=== PATIENT | male | born 1930 | race Caucasian/White ===

== ENCOUNTER 2017-06-26 07:30 | Day surgery (SDC) | payer MEDICARE, BC ==
[~2017-06-26 07:30] MED LIST: Lactated Ringers 1,000 ML IV SCH; Sodium Chloride 0.9% 10 ML Syringe FLUSH PRN
[2017-06-26] MEDS ORDERED: fentaNYL 100 MCG/2 ML SDV ONE ×2 (08:14→08:30)
[2017-06-26] MEDS ORDERED: Midazolam 1 MG/ML 2 ML SDV ONE ×2 (08:14→08:30)
[2017-06-26] MEDS ORDERED: Propofol 200 MG/20 ML SDV ONE ×2 (08:15→08:30)
[2017-06-26] MEDS ORDERED: Lidocaine 2% 5 ML SDV ONE (08:30)
--- NOTE | 2017-06-26 12:50 | OR ---
Date of Procedure: 06/26/2017 PREOPERATIVE DIAGNOSES: 1. Anemia. 2. Colon screening. POSTOPERATIVE DIAGNOSES: 1. Normal esophagogastroduodenoscopy. 2. Sigmoid diverticulosis. PROCEDURES: 1. EGD. 2. Colonoscopy. ANESTHESIA: IV sedation. PROCEDURE IN DETAIL: The patient was brought to the procedure room, where he was placed on his left side and IV sedation administered. Oral bite block was placed and the upper endoscope was advanced into the esophagus under direct vision without difficulty. Scope was advanced to the 3rd portion of the duodenum. Duodenum and pylorus were normal. Antrum and body of the stomach were normal. Retroflexion reveals a normal-appearing fundus. There was no hiatal hernia. There was a hyperplastic polyp present in the fundus. Squamocolumnar junction appears normal. Air was removed from the stomach and the scope withdrawn through the remaining esophagus, which appears normal. The patient tolerated this portion of the procedure well. Next, colonoscopy was performed after digital rectal exam was done, which was normal. Colonoscope was inserted and advanced to the level of the cecum with some difficulty getting through the ascending colon, requiring pressure on the abdomen and changing to the supine position. Prep was fair with some liquid stool remaining that was irrigated and suctioned. Upon withdrawing the scope, the ascending transverse and descending colon were normal in appearance. Sigmoid colon had multiple diverticula present. Rectum was normal and retroflexion was normal. Air was removed and the scope withdrawn. Patient tolerated the procedure well and returned to recovery in stable condition. No routine colon screening is necessary any longer because of patient's age. LEXA QUESADA MD /[id number]
[2017-06-26 13:54] VITALS: BP 175/90
== END 2017-06-26 10:00 | disposition home or self-care (01) ==
LOC: LL.SDS 07:30
PROVIDERS: ATTEND Surgery
DX: Z12.11 Encounter for screening for malignant neoplasm of colon (principal); K57.30 Diverticulosis of large intestine without perforation or abscess without bleeding; K31.7 Polyp of stomach and duodenum; I10 Essential (primary) hypertension; E78.00 Pure hypercholesterolemia, unspecified; K21.9 Gastro-esophageal reflux disease without esophagitis; J45.909 Unspecified asthma, uncomplicated; Z98.890 Other specified postprocedural states; Z87.891 Personal history of nicotine dependence
CPT/HCPCS: 43235; G0121; J2250; J2704; J3010; J7120; 00740